=== PATIENT | female | born 1980 | race Caucasian/White ===

== ENCOUNTER 2017-02-22 09:36 | Emergency (ER) | payer OTHER ==
[2017-02-22] MEDS ORDERED: WELLBUTRIN75 M1 (09:50)
[2017-02-22] MEDS ORDERED: SUBOXONE 12 MG1 EACH (09:50)
== END 2017-02-22 11:21 | disposition home or self-care (01) ==
LOC: SED 09:36
DX: L23.89 Allergic contact dermatitis due to other agents (principal); T50.905A Adverse effect of unspecified drugs, medicaments and biological substances, initial encounter; F32.9 Major depressive disorder, single episode, unspecified
CPT/HCPCS: 96372; 99283; J2930